=== PATIENT | male | born 1950 | race Two or more races ===

== ENCOUNTER 2020-11-20 18:43 | Inpatient (IN) | payer OTHER ==
[~2020-11-20] VITALS: Ht 172.7 cm; Wt 91.6 kg
[2020-11-20] MEDS ORDERED: NORVASC2.5 M1 (19:19)
[2020-11-20] MEDS ORDERED: VOLTAREN100 GM (19:19)
[2020-11-20] MEDS ORDERED: DIOVAN40 MG (19:19)
[2020-11-20] MEDS ORDERED: SIMVASTATIN20 MG (19:20)
[2020-11-20] MEDS ORDERED: SYMBICORT 16010.2 GM (19:21)
--- NOTE | 2020-11-20 19:25 | NUR ---
PACIENTE QUE LLEGA AMBULANDO EN COMPANIA DE FAMILIAR QUIEN REFIERE QUE EL PACIENTE SUFRIO LUCINDA CAIDA RECIBIENDO TRAUMA EN LA PARTE POSTERIOR DE LA YEYO Y ESPALDA. PTE NO RECUERDA LO SUCEDIDO Y BOURGEOIS FAMILIAR ALEGA QUE LUEGO DE HABERSE CAIDO ESTABA HAB[place]O INCOHERENCIAS.
--- NOTE | 2020-11-20 20:47 | NUR ---
PACIENTE EVALUADO POR DR. CUNN[place]HAM. SE COLECTAN MUESTRAS DE RUIZ SUN ORDEN MEDICA Y SE ADMINISTRAN MEDICAMENTOS ORDENADOS. SE ORIENTA A PACIENTE ACERCA DE TRATAMIENTO.
--- NOTE | 2020-11-20 22:36 | NUR ---
SE RECIBE PTE ALERTA Y ORIENTADO X 3 ESFERAS DEL AREA DE OBSERVACION. SE UBICA A PTE EN TRISTA CHELSEA 16 DE LA UNIDAD DE DOLOR DE PECHO. SE EDUCA A PTE SOBRE TX MEDICO. PTE REFIERE COMPRENDER. SE REALIZAN MUESTRAS DE LABORATORIO BAJO MEDIDAS ASEPTICAS. SE CANALIZA A PTE EN BRAZO SOLOMON AREA MELLISA DE EDEMA Y ERITEMA. SE ADMINISTRA TRIDIL 50MG/250ML BAJANDO A 3ML/HR Y 0.45 BAJANDO A 100ML/HR SUN ORDEN MEDICA. SE ADMINISTRAN MEDICAMENTOS SUN ORDEN MEDICA. SE NOTIFICAN KAREN X. CONSULTA A DRA.SYLMARIE DIOP (MEDICINA INTERNA) Y DR.REYNEIRO OROZCO (CARDIOLOGIA). SE LYSSA A PTE EN CAMA CON BARANDAS ELEVADAS POR SEGURIDAD, CONECTADO A MONITOR CARDIACO Y OXIMETRIA DE PULSO. AL MOMENTO MELLISA DE DOLOR DE PECHO. SE MANTIENE EN OBSERVACION.
[2020-11-21] MEDS ORDERED: VALSARTAN-HCTZ1 EACH (13:20)
== END 2020-11-24 11:25 | disposition designated cancer center or children's hospital (05) | DRG 282 ==
LOC: ER 18:43 → MEDJ 23:01 → MEDI 11-23 17:26
PROVIDERS: ADMIT Internal Medicine; ATTEND Internal Medicine
PROC: 4A12X4Z Monitoring of Cardiac Electrical Activity, External Approach (ICD-10-PCS; principal; 2020-11-20)
PROC: BW28ZZZ Computerized Tomography (CT Scan) of Head (ICD-10-PCS; 2020-11-21)
PROC: BR20ZZZ Computerized Tomography (CT Scan) of Cervical Spine (ICD-10-PCS; 2020-11-21)
PROC: B24BZZZ Ultrasonography of Heart with Aorta (ICD-10-PCS; 2020-11-21)
DX: I21.4 Non-ST elevation (NSTEMI) myocardial infarction (principal); S09.8XXA Other specified injuries of head, initial encounter; X58.XXXA Exposure to other specified factors, initial encounter; Y93.89 Activity, other specified; Y92.89 Other specified places as the place of occurrence of the external cause; Y99.8 Other external cause status; I10 Essential (primary) hypertension; E78.49 Other hyperlipidemia; R55 Syncope and collapse; Z20.822 Contact with and (suspected) exposure to COVID-19